=== PATIENT | female | born 1950 ===

== ENCOUNTER 2020-07-07 14:17 | Outpatient (RCR) | payer MEDICARE, SELFPAY ==
[2020-07-07 14:35] LABS: Abs Immature Grans 0.01 10^3/uL (0.0-0.06); Absolute Basophil Count 0.05 10^3/uL (0.0-0.2); Absolute Eosinophil Count 0.08 10^3/uL (0.0-0.7); Absolute Lymphocyte Count 1.49 10^3/uL (1.2-3.4); Absolute Monocyte Count 0.46 10^3/uL (0.1-0.8); Absolute Neutrophil Count 3.25 10^3/uL (1.2-6.7); Basophils % 0.9; Eosinophils % 1.5; HCT 36.7 % (36.0-46.0); HGB 12.8 g/dL (11.2-15.7); Immature Grans % 0.2; Lymphocytes % 27.9; MCH 31.8 pg (27.0-33.0); MCHC 34.9 % (32.0-36.0); MCV 91.3 fL (80-95); MPV 9.4 fL (8.0-11.0); Monocytes % 8.6; Neutrophils % 60.9; Nucleated RBC 0 %; Platelet Count 242 10^3/uL (130-400); RBC 4.02 10^6/uL (3.93-5.22); RDW 11.7 % (11.7-14.6); RDW-SD 39.6 fL; WBC 5.34 10^3/uL (4.4-10.8)
[2020-07-07] MEDS: Normal Saline Flush 10 ML SYR IVP (14:49)
[2020-07-07 15:00] LABS: ALT 28 U/L (14-59); AST 31 U/L (15-37); Alkaline Phosphatase 46 U/L (46-116); Anion Gap 8.8 mmol/L (3-11); BUN 7 mg/dL (7-18); Bilirubin, Total 0.4 mg/dL (0.2-1.0); CO2 25.2 mmol/L (21.0-32.0); CREATININE 0.66 mg/dL (0.55-1.02); Chloride 91 mmol/L (98-107); FREE T4 1.16 ng/dL (0.76-1.46); Glucose 94 mg/dL (74-106); LDH 182 U/L (81-234); Potassium 4.3 mmol/L (3.5-5.1); Sodium 125 mmol/L (136-145); TSH 0.26 uIU/mL (0.36-3.74); Total Protein 6.6 g/dL (6.4-8.2)
== END 2020-07-21 23:59 | disposition home or self-care (01) ==
LOC: INF 14:17
PROVIDERS: Visit Provider Internal Medicine Hospice and Palliative Medicine
DX: Z79.899 Other long term (current) drug therapy (principal)
CPT/HCPCS: 36415; 80053; 83615; 84439; 84443; 85025